=== PATIENT | male | born 1965 | race Caucasian/White ===

== ENCOUNTER 2022-01-08 10:55 | Outpatient (CLI) | payer BC, OTHER, SELFPAY | END 2022-01-08 10:56 | disposition home or self-care (01) | LOC: ANHGOSHLAB 10:59 | PROVIDERS: PCP Emergency Medicine; Visit Provider Emergency Medicine | DX: E07.9 Disorder of thyroid, unspecified (principal) | CPT/HCPCS: 36415 ==

== ENCOUNTER 2022-01-30 10:25 | Emergency (ER) | payer BC, OTHER, SELFPAY ==
--- NOTE | 2022-01-30 10:27 | ED.HA ---
HPI - Headache General Chief Complaint: Headache Stated Complaint: HEADACHE Time Seen by Provider: 01/30/22 10:27 Source: patient and RN notes reviewed History of Present Illness HPI Narrative: Patient is a 56-year-old male who presents to the Urgent Care with complaints of a cluster headache due to a sinusitis. Patient states this is typical for him it has been worse since he has moved here from [place]. Patient states in the past he has gotten a steroid injection to help with the sinusitis to clear up his headache. Patient has taken [id number] Benadryl but has not treated his headaches or taken any other pain medications. No other acute complaints. No acute distress noted. Patient aware of the plan of care. Some parts of this dictation were generated by voice recognition software and may contain typographical and/or grammatical inaccuracies. Related Data Home Medications Medication Instructions Recorded Confirmed dutasteride 0.5 mg capsule 0.5 mg PO DAILY 01/08/22 01/30/22 trazodone 50 mg tablet 50 mg PO QHS PRN Insomnia 01/08/22 01/30/22 Allergies Allergy/AdvReac Type Severity Reaction Status Date / Time No Known Allergies Allergy Verified 01/30/22 10:37 Review of Systems Review of Systems: CONSTITUTIONAL: Denies fever, chills, or sweats. EYES: Denies visual changes, redness, or discharge. ENT: Reports of sinus congestion/pressure, postnasal drainage CARDIOVASCULAR: Denies chest pain, palpitations, or edema. RESPIRATORY: Denies cough or dyspnea. GASTROINTESTINAL: Denies abdominal pain, nausea, vomiting, or diarrhea. GENITOURINARY: Denies dysuria or hematuria. SKIN: Denies rash or itching. MUSCULOSKELETAL: Denies back pain, joint pain, or myalgia. NEUROLOGIC: Reports of cluster headaches All other systems reviewed are negative, except as documented in HPI. [facility] Past Medical History Medical History Allergies Migraine Thyroid disorder Family History Family History Father Alcoholism Depression Anxiety Grandparent Cancer Social History Social History Social History: Caffeine- coffee Smoking status: Never smoker Alcohol intake: never Substance use type: does not use Agree to blood products: Yes Comments At the time of my signature, I reviewed and agree with the nursing past medical, surgical, social, and family history. There is no relevant family history pertinent to the patient complaint. Exam Narrative: GENERAL: This is a well-nourished, well-developed patient, in no apparent distress. HEAD: normocephalic, atraumatic. Frontal sinus tenderness EYES: PERRL. Sclera clear/white. Vision is grossly intact. EARS: External ears normal, auditory canals clear and without drainage, TMs normal without perforation. Hearing grossly intact. NOSE: External nose normal with no obvious nasal discharge, nares without redness, no rhinorrhea. THROAT: Mucous membranes moist, posterior pharynx clear. Mild postnasal drainage NECK: Neck supple CARDIOVASCULAR: Regular rate and rhythm without murmurs, gallops, or rubs. RESPIRATORY: Clear to auscultation. Breath sounds equal bilaterally. No wheezes, rales, or rhonchi. SKIN: warm, intact with no suspicious lesions or rash, good texture and turgor. NEURO: awake, alert, and oriented to person, place and time. There were no obvious focal neurologic abnormalities. EXTREMITIES: No clubbing, cyanosis, or edema. Course Course Level of Care: Express Care Visit Vital Signs Vital signs: Vital Signs Temperature 98.8 F 01/30/22 10:39 Pulse Rate 82 01/30/22 10:39 Respiratory Rate 16 01/30/22 10:39 Blood Pressure 151/95 H 01/30/22 10:39 Pulse Oximetry 97 01/30/22 10:39 Temperature 98.8 F 01/30/22 10:39 Pulse Rate 82 01/30/22 10:39 Respiratory Rate 16 01/30/22
[2022-01-30 10:39] VITALS: BP 151/95; PULSE 82; RESP 16; TEMP 37.1; O2SAT 97
== END 2022-01-30 10:49 | disposition home or self-care (01) ==
PROVIDERS: Emergency Provider Nurse Practitioner Family; PCP Emergency Medicine
DX: J32.9 Chronic sinusitis, unspecified (principal); E07.9 Disorder of thyroid, unspecified
CPT/HCPCS: 99213; G0463

== ENCOUNTER 2022-03-05 01:36 | Day surgery (SDC) | payer BC, OTHER, SELFPAY ==
[2022-02-26 09:07] VITALS: BMI 29.0
[2022-03-05 06:40] VITALS: BP 155/84; PULSE 90; RESP 18; TEMP 36.5; O2SAT 98; BMI 30.3
[2022-03-05] MEDS: LACTATED RINGERS 1,000 ML 150 ML IV CONT (06:56)
--- NOTE | 2022-03-05 07:34 | P.PNAN_ITS ---
Anes - Initial Pre Proc Eval Procedure: Operation Date: 03/05/22 08:00 Proposed Procedures p Screening Colonoscopy - Arnol Kelly MD Date/Time: 03/05/22 07:34 Surgeon: Arnol Kelly MD Pre Op Diagnosis: neoplasm screening Patient Data Age: 56 Gender: M Height: 1.83 m Weight: 101.4 kg Last Vital Signs Temp 97.7 F 03/05/22 06:40 Pulse 90 03/05/22 06:40 Resp 18 03/05/22 06:40 BP 155/84 H 03/05/22 06:40 Pulse Ox 98 03/05/22 06:40 O2 Del Method Room Air 03/05/22 06:40 Allergies Allergy/AdvReac Type Severity Reaction Status Date / Time No Known Allergies Allergy Verified 03/05/22 06:44 Home Medications Medication Instructions Recorded Confirmed Type dutasteride 0.5 mg capsule 0.5 mg PO DAILY 01/08/22 03/05/22 History trazodone 50 mg tablet 50 mg PO QHS PRN Insomnia 01/08/22 03/05/22 History thyroid (pork) 120 mg tablet ([employer] 120 mg PO DAILY #90 tabs 01/14/22 03/05/22 Rx Thyroid) Patient hx anesthesia problems: none Family hx anesthesia problems: none Results Review: All pre-operative results and documents have been reviewed as part of the pre- operative evaluation. [facility] Past Medical History Medical History Allergies Migraine Thyroid disorder Family History Family History Father Alcoholism Depression Anxiety Grandparent Cancer Social History Social History Social History: Caffeine- coffee Smoking status: Former smoker Tobacco type: smokeless tobacco Smokeless tobacco user: chewing tobacco Additional smoking assessment comments: quit 2011 Alcohol intake: never Substance use: never Substance use type: does not use Living arrangements: with family Spiritual care concerns: No Agree to blood products: Yes Anes - Eval Final PreProcedure Day of Procedure 03/05/22 07:34 Patient weight: normal Heart: regular rate and rhythm Lungs: clear to auscultation Airway: Mallampati scale class II Neurological: alert and oriented Last oral intake: >/= 8 hours ASA classification: II Emergent: no Anesthetic plan: proceed Anesthesia type and monitoring: general GIVS and standard monitoring Results Review: All pre-operative results and documents have been reviewed as part of the pre- operative evaluation. Informed Consent: The patient's anesthetic plan and its attendant risks and benefits were discussed with the patient/family/POA. Questions were solicited and answers provided to the satisfaction of the patient/family/POA.
--- NOTE | 2022-03-05 07:56 | PM.HPGS ---
History of Present Illness History of Present Illness Consent: Risks, benefits, and alternatives have been discussed and questions answered. Patient agrees to proceed with procedure. Chief complaint: neoplasm screening Narrative: Cristian Reynolds is a 56 year old male here for first screening colonoscopy Review of Systems Constitutional: Constitutional: Denies headache(s) and Denies weakness Eyes: Eyes: Denies blurry vision ENT: Reports Normal hearing present, Denies headache(s) and Denies neck pain Cardiovascular: Cardiovascular: Denies chest pain and Denies dyspnea Respiratory: Respiratory: Denies dyspnea Gastrointestinal: Gastrointestinal: Reports no additional gastrointestinal complaints Genitourinary: Genitourinary: Denies dysuria Musculoskeletal: Musculoskeletal: Denies neck pain Integumentary/Breasts: Skin/Breast: Denies dry skin Neurologic: Reports Normal hearing present, Denies headache(s) and Denies weakness Psychiatric: Psychiatric: Denies anxiety Endocrine: Endocrine: Denies change in body appearance Hematologic/Lymphatic: Hematologic/Lymphatic: Denies easy bleeding Allergic/Immunologic: Allergic/Immunologic: Denies urticaria PMF Past Medical History Medical History (Updated 03/05/22 @ 07:56 by Arnol Kelly MD) Allergies Colon cancer screening Migraine Thyroid disorder Family History Family History Father Alcoholism Depression Anxiety Grandparent Cancer Social History Social History Social History: Caffeine- coffee Smoking status: Former smoker Tobacco type: smokeless tobacco Smokeless tobacco user: chewing tobacco Additional smoking assessment comments: quit 2010 Alcohol intake: never Substance use: never Substance use type: does not use Living arrangements: with family Spiritual care concerns: No Agree to blood products: Yes Meds Home Medications and Allergies Home Medications Medication Instructions Recorded Confirmed Type dutasteride 0.5 mg capsule 0.5 mg PO DAILY 01/08/22 03/05/22 History trazodone 50 mg tablet 50 mg PO QHS PRN Insomnia 01/08/22 03/05/22 History thyroid (pork) 120 mg tablet ([employer] 120 mg PO DAILY #90 tabs 01/14/22 03/05/22 Rx Thyroid) Allergies Allergy/AdvReac Type Severity Reaction Status Date / Time No Known Allergies Allergy Verified 03/05/22 06:44 Vital Signs Vital Signs - 24 hr 03/05/22 06:40 Temperature 97.7 F Pulse Rate 90 Respiratory Rate 18 Blood Pressure 155/84 H Pulse Oximetry 98 Oxygen Delivery Room Air Exam Const: General: comfortable and no acute distress HENMT: Face/Nose/Sinus: Normal nares present Eyes: General: appearance normal, both eyes and all related structures Neck: Neck: no JVD Resp: Auscultation: clear to auscultation bilaterally Cardio: Rate: regular rate Rhythm: regular rhythm GI: Inspection: non-distended GI Palp: Yes Soft to palpation Skin: General skin exam: normal color Neuro: General: gait normal Speech: normal speech Extrem: General: normal to inspection Psych: Mental Status: mental status grossly normal Assessment and Plan Assessment and plan (1) Colon cancer screening: Code(s): Z12.11 - Encounter for screening for malignant neoplasm of colon Status: Acute Assessment and Plan: colonoscopy
[2022-03-05 08:17] VITALS: BP 114/82; PULSE 90; RESP 19; O2SAT 98
[2022-03-05 08:27] VITALS: BP 124/84; PULSE 92; RESP 18; O2SAT 97
[2022-03-05 08:37] VITALS: BP 132/80; PULSE 89; RESP 19; O2SAT 98
== END 2022-03-05 08:45 | disposition home or self-care (01) ==
PROVIDERS: PCP Emergency Medicine; Visit Provider Internal Medicine Gastroenterology
PROC: 0DJD8ZZ Inspection of Lower Intestinal Tract, Via Natural or Artificial Opening Endoscopic (ICD-10-PCS; CPT 45378; principal; 2022-03-05 08:00)
DX: Z12.11 Encounter for screening for malignant neoplasm of colon (principal); K64.8 Other hemorrhoids; K57.30 Diverticulosis of large intestine without perforation or abscess without bleeding; Z87.891 Personal history of nicotine dependence
CPT/HCPCS: 45378; J2704; J7120

== ENCOUNTER 2022-05-14 15:32 | Emergency (ER) | payer BC, OTHER, SELFPAY ==
[2022-05-14] VITALS (12 sets, daily range): BP systolic 132–151; BP diastolic 82–99; PULSE 77–96; RESP 12–16; TEMP 37.1; O2SAT 97–100
--- NOTE | ~2022-05-14 | CT_ITS ---
EXAMINATION: CT BRAIN W/O DATE: 05/14/2022 18:46 INDICATION: Headache and vomiting TECHNIQUE: Computed tomography (CT) of the head was performed without intravenous contrast. The dose- length product was 605.33 mGy-cm. Automated exposure control and iterative reconstruction technique w ere employed. COMPARISON: No prior studies for comparison. FINDINGS: Normal brain parenchymal volume for age. Normal richmond-white differentiation. No acute intrac ranial hemorrhage, infarction, mass or mass effect. No ventriculomegaly or midline shift. Midline sagittal images demonstrate a normal corpus callosum, c raniovertebral junction and sella turcica. Basilar cisterns are patent. Paranasal sinuses and mastoids are pneumatized. No depressed skull fractures. IMPRESSION: 1. No acute intracranial abnormality. Reviewed, dictated and finalized at location A. [facility] [employer] [facility]
--- NOTE | 2022-05-14 18:02 | ED.HA ---
HPI - Headache General Chief Complaint: Headache Stated Complaint: vivas x 5 days Time Seen by Provider: 05/14/22 17:25 History of Present Illness HPI Narrative: Patient is a 56-year-old male with a history of migraines, hypothyroidism presenting with headache. Patient states that for the last 2 weeks he has had a persistent right-sided headache. States that it has been worsening over the last 5 days. States it is located behind his right eye and is associated with eye tearing. Denies fevers or chills, numbness or weakness, vision changes, speech difficulties, ataxia, chest pain, shortness of breath, cough, abdominal pain, vomiting, diarrhea, leg swelling, dysuria. Related Data Home Medications Medication Instructions Recorded Confirmed dutasteride 0.5 mg capsule 0.5 mg PO DAILY 01/08/22 05/14/22 trazodone 50 mg tablet 50 mg PO QHS PRN Insomnia 01/08/22 05/14/22 ergotamine 1 mg-caffeine 100 mg See Rx Instructions PO .COMPLEX 05/06/22 05/14/22 tablet Allergies Allergy/AdvReac Type Severity Reaction Status Date / Time No Known Allergies Allergy Verified 05/14/22 14:49 Review of Systems Review of Systems: All systems reviewed & are unremarkable except as noted in HPI and below PMFSH Past Medical History Medical History Allergies Colon cancer screening Migraine Thyroid disorder Family History Family History Father Alcoholism Depression Anxiety Grandparent Cancer Social History Social History Social History: Caffeine- coffee Smoking status: Former smoker Tobacco type: smokeless tobacco Smokeless tobacco user: chewing tobacco Additional smoking assessment comments: quit 2010 Alcohol intake: never Substance use: never Substance use type: does not use Lack of Transportation: No Lack of Food: Never True Current Housing: I Have Housing Concerned About Future Housing: No Difficulty Paying Gas/Electric Bills: No Difficulty Paying for Meds: No Currently Unemployed: No Education: Bachelor's Degree Difficulty w/ Childcare or Family Care: No Living arrangements: with family Spiritual care concerns: No Agree to blood products: Yes Exam Narrative: GENERAL: Very uncomfortable appearing laying in bed, pleasant and cooperative HEAD: Normocephalic, atraumatic. EYES: PERRLA and EOMI. right eye is injected, +lacrimation and rhinorrhea ENT: Nares clear, no rhinorrhea or epistaxis. Mucous membranes moist. NECK: Supple. CHEST: Clear to auscultation. No respiratory distress. HEART: Regular rate and rhythm. No murmur heard. Normal peripheral pulses. ABDOMEN: Soft, nontender, nondistended EXTREMITIES: Normal range of motion. No edema. SKIN: Warm, dry, no rash. NEURO: No focal deficits. Alert and oriented x3. 5 out of 5 strength in all extremities, no sensory deficits, no pronator drift, no dysarthria or aphasia, no ataxia. PSYCH: Normal mood and affect. Course Vital Signs Vital signs: Vital Signs Temperature 98.7 F 05/14/22 15:36 Pulse Rate 96 05/14/22 15:36 Respiratory Rate 16 05/14/22 15:36 Blood Pressure 151/82 H 05/14/22 15:36 Pulse Oximetry 97 05/14/22 15:36 Oxygen Delivery Room Air 05/14/22 15:36 Temperature 98.7 F 05/14/22 15:36 Pulse Rate 81 05/14/22 19:31 Respiratory Rate 13 05/14/22 19:31 Blood Pressure 132/93 H 05/14/22 19:31 Pulse Oximetry 99 05/14/22 20:00 Oxygen Delivery Non-Rebreather Mask 05/14/22 18:48 Oxygen Flow Rate 15 05/14/22 18:48 MDM - Headache MDM Narrative Medical decision making narrative: Patient is a 56-year-old male presenting with right-sided headache. Patient slightly hypertensive, otherwise vitals are within normal limits. Exam is remarkable for the above. Concerned that this is a cluster headache with the focality o
[2022-05-14] MEDS: SODIUM CHLORIDE 0.9% IV 1,000 ML 999 ML IV CONT (18:35)
[2022-05-14] MEDS: diphenhydrAMINE HCl INJ 50 MG/ML VIAL 25 MG IV PUSH (18:36)
[2022-05-14] MEDS: KETOROLAC 15 MG/ML VIAL (*BKC) IV PUSH (18:36)
[2022-05-14] MEDS: PROCHLORPERAZINE EDISYLATE 10 MG/2 ML VIAL IV PUSH (18:36)
[2022-05-14 18:45] LABS: Basophils Absolute Auto 0.1 K/mm3 (0.0-0.1); Basophils Percent Auto 0.4 % (0.2-1.2); Eosinophils Absolute Auto 0.3 K/mm3 (0-0.3); Eosinophils Percent Auto 2.3 % (0-4.4); Hematocrit 52.5 % (42.0-52.0); Hemoglobin 17.8 g/dL (14.0-18.0); Immature Granulocyte Percent A 0.7 % (0-0.5); Lymphocytes Absolute Auto 2.57 K/mm3 (0.9-3.2); Lymphocytes Percent Auto 18.9 % (18.3-44.2); Mean Corpuscular HGB Conc 33.9 g/dl (32-36); Mean Corpuscular Hemoglobin 32.3 pg (26-34); Mean Corpuscular Volume 95.3 fl (80-100); Mean Platelet Volume 9.7 fl (7.4-10.4); Monocytes Absolute Auto 0.9 K/mm3 (0.1-0.6); Monocytes Percent Auto 6.8 % (2.6-8.5); Neutrophils Absolute Auto 9.6 K/mm3 (1.3-6.7); Neutrophils Percent Auto 70.9 % (45.5-73.1); Platelet Count Result 230 k/mm3 (150-375); Red Blood Count 5.51 M/mm3 (4.6-6.20); Red Cell Distribution Width 12.8 % (11.5-14.5); White Blood Count 13.6 K/mm3 (4.5-10.0)
[2022-05-14 18:55] LABS: Alanine Aminotransferase 29 U/L (6-50); Albumin Level 4.3 g/dL (3.5-5.1); Alkaline Phosphatase 42 U/L (38-126); Anion Gap 3 mmol/L (8-16); Aspartate Amino Transferase 32 U/L (17-59); Bilirubin,Total 0.7 mg/dL (0.2-1.3); Blood Urea Nitrogen 16 mg/dL (9-20); Calcium 9.3 mg/dL (8.4-10.2); Carbon Dioxide 33 mmol/L (22-30); Chloride 98 mmol/L (98-107); Estimated CRCL calculation 67 ml/min; Estimated Glomerular Filt Rate 53; Glucose 94 mg/dL (65-110); Potassium 4.1 mmol/L (3.4-5.0); Sodium 134 mmol/L (137-145)
== END 2022-05-14 21:12 | disposition home or self-care (01) ==
PROVIDERS: Emergency Provider Emergency Medicine; PCP Emergency Medicine
DX: G44.009 Cluster headache syndrome, unspecified, not intractable (principal); E03.9 Hypothyroidism, unspecified; Z87.891 Personal history of nicotine dependence
CPT/HCPCS: 36415; 70450; 80053; 85025; 96361; 96374; 96375; 99284; J0780; J1200; J1885; J7030

== ENCOUNTER 2022-05-22 12:23 | Emergency (ER) | payer BC, OTHER, SELFPAY ==
[2022-05-22 12:37] VITALS: BP 130/91; PULSE 102; RESP 16; TEMP 36.9; O2SAT 97
--- NOTE | 2022-05-22 12:54 | ED.URI ---
HPI - URI/Sore Throat General Chief Complaint: Upper Respiratory Infection Stated Complaint: SINUS CONGESITON/HEADACHE Time Seen by Provider: 05/22/22 12:54 Source: patient, RN notes reviewed and old records reviewed Mode of arrival: ambulatory Limitations: no limitations History of Present Illness HPI Narrative: 56 year old male presents to [facility] care accompanied by with complaints of 3-4 weeks of sinus congestion and increased incidences of cluster headache pain. Patient has been seen in the emergency room and also has seen his PCP. Patient states that he has had sinus congestion with drainage sinus pressure and right frontal headaches. Patient reports at times he has photophobia and is nauseated.Patient reports that his pain today is 4/10 and describes it as continuous ache. MD elicited complaint: rhinorrhea, nasal congestion, sinus pain and other (cluster headaches) Pertinent past history: sinusitis, seasonal allergies and other (cluster migraines) Onset (ago): week(s) (4) Pain scale (0-10): 4 Description of mucous: clear Able to tolerate fluids by mouth: Yes Treatments prior to arrival: none and other (Benadryl and migraine meds) Related Data Home Medications Medication Instructions Recorded Confirmed dutasteride 0.5 mg capsule 0.5 mg PO DAILY 01/08/22 05/22/22 trazodone 50 mg tablet 50 mg PO QHS PRN Insomnia 01/08/22 05/22/22 ergotamine 1 mg-caffeine 100 mg See Rx Instructions PO .COMPLEX 05/06/22 05/22/22 tablet Allergies Allergy/AdvReac Type Severity Reaction Status Date / Time No Known Allergies Allergy Verified 05/22/22 12:36 Review of Systems Review of Systems: CONSTITUTIONAL: Denies fever, chills, or sweats. EYES: Denies visual changes, redness, or discharge.at times is photophobic ENT: Reports rhinorrhea, congestion, no sore throat, or otalgia. CARDIOVASCULAR: Denies chest pain, palpitations, or edema. RESPIRATORY: Denies cough or dyspnea. GASTROINTESTINAL: Denies abdominal pain, nausea, vomiting, or diarrhea. GENITOURINARY: Denies dysuria or hematuria. SKIN: Denies rash or itching. MUSCULOSKELETAL: Denies back pain, joint pain, or myalgia. NEUROLOGIC: positive for right frontal headache, no numbness, or weakness, history also of cluster migraines PSYCHIATRIC: Denies anxiety or depression. All systems reviewed & are unremarkable except as noted in HPI and below PMFSH Past Medical History Medical History (Updated 05/23/22 @ 00:01 by Noe Parra) Allergies Colon cancer screening Migraine Thyroid disorder Surgical History Surgical History (Updated 05/24/22 @ 16:10 by Shanika Ruelas NP) History of arthroplasty of right shoulder Family History Family History Father Alcoholism Depression Anxiety Grandparent Cancer Social History Social History Social History: Caffeine- coffee Smoking status: Former smoker Tobacco type: smokeless tobacco Smokeless tobacco user: chewing tobacco Additional smoking assessment comments: quit 2011 Alcohol intake: never Substance use: never Substance use type: does not use Lack of Transportation: No Lack of Food: Never True Current Housing: I Have Housing Concerned About Future Housing: No Difficulty Paying Gas/Electric Bills: No Difficulty Paying for Meds: No Currently Unemployed: No Education: Bachelor's Degree Difficulty w/ Childcare or Family Care: No Living arrangements: with family Spiritual care concerns: No Agree to blood products: Yes Comments At time of signature, agree with nursing past medical, surgical, social and family history. There is no relevant family history pertinent to the presenting complaint Exam Narrative: GENERAL: Well-appearing, well-nourished, and in no acute distress. HEAD: Normocephalic, atraumatic. EYES: PERRLA and EOMI.no nystagmus ENT: Nares red [place]
== END 2022-05-22 13:17 | disposition home or self-care (01) ==
PROVIDERS: Emergency Provider Registered Nurse; PCP Emergency Medicine
DX: J32.9 Chronic sinusitis, unspecified (principal); G44.021 Chronic cluster headache, intractable; Z87.891 Personal history of nicotine dependence
CPT/HCPCS: 99213; G0463

== ENCOUNTER 2022-07-09 10:58 | Outpatient (CLI) | payer BC, OTHER, SELFPAY ==
[2022-07-09 12:34] LABS: Kit Draw Collected
== END 2022-07-09 10:59 | disposition home or self-care (01) ==
LOC: ANHGOSHLAB 11:00
PROVIDERS: PCP Emergency Medicine; Visit Provider Nurse Practitioner Family
DX: Z00.00 Encounter for general adult medical examination without abnormal findings (principal)
CPT/HCPCS: 36415

== ENCOUNTER 2022-08-01 07:41 | Emergency (ER) | payer BC, OTHER, SELFPAY ==
--- NOTE | ~2022-08-01 | XR_ITS ---
EXAMINATION: XR lumbar spine 2-3V DATE: 08/01/2022 08:32 INDICATION: Left-sided low back pain. TECHNIQUE: 3 views of lumbar spine were obtained. COMPARISON: None. FINDINGS: Bone alignment is normal. Vertebral body heights are normal. There is mildly decreased disc height at L2-L3. There is multilevel mild facet joint osteoarthritis. IMPRESSION: 1. Mild lumbar spondylosis. Reviewed, dictated and finalized at location A. IMPRESSION: 1. Mild lumbar spondylosis.
[2022-08-01 07:49] VITALS: BP 154/84; PULSE 88; RESP 14; TEMP 36.9; O2SAT 98
[2022-08-01] MEDS: diazePAM INJ (*CRX) 10 MG/2 ML SYRINGE 5 MG IV PUSH (08:08)
[2022-08-01] MEDS: KETOROLAC 30 MG/ML VIAL (*BKC) IV PUSH (08:08)
--- NOTE | 2022-08-01 08:18 | ED.BACK ---
HPI - Back Pain/Injury General Chief Complaint: Back Pain/Injury Stated Complaint: back pain Time Seen by Provider: 08/01/22 07:48 History of Present Illness HPI Narrative: Patient is a 57-year-old male who presents ER with low back pain. Left side. Moves in buttock. Has history of sciatica from a previous injury and this is not as bad. Pain is worse when he steps on his left foot. He has gone to his chiropractor without improvement. Injury occurred while he was doing a body weight [place] workout. No saddle anesthesia, no issues with with urination/defecation. Related Data Home Medications Medication Instructions Recorded Confirmed trazodone 50 mg tablet 50 mg PO QHS PRN Insomnia 01/08/22 07/09/22 sumatriptan succinate 100 mg 100 mg PO ONCE 07/09/22 07/09/22 tablet (Imitrex) Allergies Allergy/AdvReac Type Severity Reaction Status Date / Time No Known Allergies Allergy Verified 08/01/22 07:41 Review of Systems Constitutional: Constitutional: Denies chills and Denies fever(s) Genitourinary: Genitourinary: Denies urinary frequency and Denies urinary incontinence Musculoskeletal: Musculoskeletal: Reports back pain, Denies arthralgias and Denies joint swelling Neurologic: Denies focal weakness and Denies numbness PMFSH Past Medical History Medical History Allergies Colon cancer screening Thyroid disorder Surgical History Surgical History History of arthroplasty of right shoulder Family History Family History Father Alcoholism Depression Anxiety Grandparent Cancer Social History Social History Social History: Caffeine- coffee Smoking status: Former smoker Tobacco type: smokeless tobacco Smokeless tobacco user: chewing tobacco Additional smoking assessment comments: quit 2011 Alcohol intake: never Substance use: never Substance use type: does not use Lack of Transportation: No Lack of Food: Never True Current Housing: I Have Housing Concerned About Future Housing: No Difficulty Paying Gas/Electric Bills: No Difficulty Paying for Meds: No Currently Unemployed: No Education: Bachelor's Degree Difficulty w/ Childcare or Family Care: No Living arrangements: with family Spiritual care concerns: No Agree to blood products: Yes Exam Narrative: GENERAL: Well-appearing, well-nourished, and in no acute distress. HEAD: Normocephalic, atraumatic. EYES: PERRL and EOMI. Neck: No reproducible midline tenderness of the T or L-spine. There is left sided tenderness over the SI region that reproduces the pain. There is mild low thoracic and upper lumbar paraspinal muscular tenderness on the right side without palpable spasm. EXTREMITIES: Normal range of motion. No edema. Patient ambulating in a guarded manner. SKIN: Warm, dry, no rash. NEURO: Alert and oriented x3. PSYCH: Normal mood and affect. Course Course Emergency Course: Patient with modest improvement in pain with Toradol and Valium. Discharge home with Medrol Dosepak and cyclobenzaprine. Discussed need for follow-up with PCP patient verbalized understanding. Vital Signs Vital signs: Vital Signs Temperature 98.5 F 08/01/22 07:49 Pulse Rate 88 08/01/22 07:49 Respiratory Rate 14 08/01/22 07:49 Blood Pressure 154/84 H 08/01/22 07:49 Pulse Oximetry 98 08/01/22 07:49 Oxygen Delivery Room Air 08/01/22 07:49 Temperature 98.5 F 08/01/22 07:49 Pulse Rate 88 08/01/22 07:49 Respiratory Rate 14 08/01/22 07:49 Blood Pressure 154/84 H 08/01/22 07:49 Pulse Oximetry 98 08/01/22 07:49 Oxygen Delivery Room Air 08/01/22 07:49 MDM - Back Pain/Injury Imaging Data Radiologist's impression: ITS Impressions Lumbar Spine X-Ray 08/01/22 08:
[2022-08-01 09:47] VITALS: BP 131/80; PULSE 86; RESP 16; O2SAT 97
== END 2022-08-01 09:49 | disposition home or self-care (01) ==
PROVIDERS: Emergency Provider Emergency Medicine; PCP Emergency Medicine
DX: M54.50 Low back pain, unspecified (principal); E07.9 Disorder of thyroid, unspecified; Z87.891 Personal history of nicotine dependence; M47.816 Spondylosis without myelopathy or radiculopathy, lumbar region
CPT/HCPCS: 72100; 96374; 96375; 99284; J1885; J3360

== ENCOUNTER 2022-08-08 08:11 | Emergency (ER) | payer BC, OTHER, SELFPAY ==
--- NOTE | ~2022-08-08 | CT_ITS ---
EXAMINATION: CT lumbar spine wo con DATE: 08/08/2022 09:55 INDICATION: Low back pain TECHNIQUE: Computed tomography (CT) of the lumbar spine was performed without intravenous contrast. T he dose-length product was 1051.52 mGy-cm. Automated exposure control and iterative reconstruction te chnique were employed. COMPARISON: Lumbar spine series dated 08/01/2022 FINDINGS: There is mild disc narrowing at L5-S1. Vertebral body heights are maintained. No evidence f or acute fracture, subluxation or dislocation. There is a subtle lytic lesion of L2 vertebral body an teriorly. No evidence for spondylolisthesis. No significant spinal stenosis. No significant paraspina l soft tissue abnormality. IMPRESSION: 1. Subtle lytic lesion of L2. Consider metastatic disease and myeloma. Correlate for history of malig arlene. 2: Mild lumbar spondylosis. Reviewed, dictated and finalized at location A. IMPRESSION: 1. Subtle lytic lesion of L2. Consider metastatic disease and myeloma. Correlat e for history of malignancy. 2: Mild lumbar spondylosis.
[2022-08-08 08:25] VITALS: BP 143/91; PULSE 85; RESP 16; TEMP 36.7; O2SAT 98
--- NOTE | 2022-08-08 09:29 | ED.BACK ---
HPI - Back Pain/Injury General Chief Complaint: Back Pain/Injury Stated Complaint: BACK PAIN Time Seen by Provider: 08/08/22 08:52 History of Present Illness HPI Narrative: 57-year-old male presenting to the ED for evaluation of lower back pain. Patient was initially seen on 08/01 for left-sided lower back pain that does radiate to his left buttock. Patient reports he does have a history of sciatica. Patient reports that the pain is worsened with movement and with ambulation. Patient states that the injury occurred while he was doing [employer]. Patient denies any numbness or weakness. Patient states that he was previously treated with a round of steroids with no significant improvement. Patient did have follow-up with his primary care physician does have an outpatient MRI ordered. Patient denies any change in bowel habits or with urination. Patient denies any saddle anesthesia. Related Data Home Medications Medication Instructions Recorded Confirmed trazodone 50 mg tablet 50 mg PO QHS PRN Insomnia 01/08/22 07/09/22 sumatriptan succinate 100 mg 100 mg PO ONCE 07/09/22 07/09/22 tablet (Imitrex) Allergies Allergy/AdvReac Type Severity Reaction Status Date / Time No Known Allergies Allergy Verified 08/06/22 13:44 Review of Systems Review of Systems: All systems reviewed & are unremarkable except as noted in HPI and below PMFSH Past Medical History Medical History Allergies Colon cancer screening Thyroid disorder Surgical History Surgical History History of arthroplasty of right shoulder Family History Family History Father Alcoholism Depression Anxiety Grandparent Cancer Social History Social History Social History: Caffeine- coffee Smoking status: Former smoker Tobacco type: smokeless tobacco Smokeless tobacco user: chewing tobacco Additional smoking assessment comments: quit 2011 Alcohol intake: never Substance use: never Substance use type: does not use Lack of Transportation: No Lack of Food: Never True Current Housing: I Have Housing Concerned About Future Housing: No Difficulty Paying Gas/Electric Bills: No Difficulty Paying for Meds: No Currently Unemployed: No Education: Bachelor's Degree Difficulty w/ Childcare or Family Care: No Living arrangements: with family Spiritual care concerns: No Agree to blood products: Yes Exam Narrative: APPEARANCE: Well appearing, no pain, no distress, well-nourished. HEAD: normocephalic, atraumatic. EYES: PERRLA/EOMI, conjunctivae clear. NOSE: Normal no drainage NECK: Supple. No adenopathy, no masses. RESPIRATORY: Airway patent, respirations nonlabored. Clear to auscultation bilaterally, no rales, rhonchi, wheezing. CARDIOVASCULAR: Regular rate and rhythm without murmurs rubs or gallops. ABDOMINAL: Soft, nontender, nondistended, normal bowel sounds MUSCULOSKELETAL: No significant lower back tenderness to palpation. Some left lower paraspinal tenderness to palpation. Tenderness over the left buttock. NEURO: Alert. Cranial nerves II through XII intact. Grossly intact SKIN: Warm, dry. Normal Color Course Course Emergency Course: 57-year-old male presented emerged department for evaluation of left lower back and left leg pain. CT was ordered to rule out acute lumbar injury. No significant abnormalities were seen on the scan other than a lytic lesion at L2. Patient was updated on the results of the CT scan and encouraged of close follow-up regarding the lytic lesion. Patient does have an outpatient MRI scheduled. He was encouraged of close follow-up with his primary care physician to ensure that this was the appropriate imaging to further evaluate the lesion. Patient reports he do
--- NOTE | 2022-08-08 09:52 | PC.NURSE ---
Pt in CT at this time
[2022-08-08] MEDS: CYCLOBENZAPRINE HCL 10 MG TABLET PO (09:57)
[2022-08-08] MEDS: HYDROcodone/acetaminophen (*CRX) 5-325 MG TABLET 1 TAB PO (09:57)
[2022-08-08] MEDS: KETOROLAC 30 MG/ML VIAL (*BKC) IM (09:58)
== END 2022-08-08 12:15 | disposition home or self-care (01) ==
PROVIDERS: Emergency Provider Emergency Medicine; PCP Emergency Medicine
DX: M54.42 Lumbago with sciatica, left side (principal); E07.9 Disorder of thyroid, unspecified; Z96.611 Presence of right artificial shoulder joint; Z87.891 Personal history of nicotine dependence; M47.816 Spondylosis without myelopathy or radiculopathy, lumbar region; M89.9 Disorder of bone, unspecified
CPT/HCPCS: 72131; 96372; 99284; A9270; J1885

== ENCOUNTER → 2022-08-10 14:54 | Outpatient (CLI) | payer BC, OTHER, SELFPAY ==
--- NOTE | ~2022-08-10 | MR_ITS ---
EXAMINATION: MR lumbar spine wo con DATE: 08/10/2022 15:34 INDICATION: Lumbago with sciatica, left side. TECHNIQUE: Magnetic resonance imaging (MRI) of the lumbar spine was performed without intravenous con trast. Sequences included sagittal T2-weighted FSE, sagittal T2-weighted FS FSE, sagittal T1-weighted FSE, and axial T2-weighted FSE. COMPARISON: Lumbar spine CT 08/08/2022 FINDINGS: Bone alignment is normal. Vertebral body heights are normal. There is mildly decreased disc height at L2-L3. The distal spinal cord signal intensity is normal. The conus medullaris is at T12-L 1. The following disc levels are specifically discussed: L1-L2: The disc does not extend beyond the endplate margin. There is mild bilateral facet joint osteo arthritis. There is no neural foraminal stenosis. There is no central canal stenosis. L2-L3: The disc is mildly bulging. There is mild lateral facet joint osteoarthritis. There is mild ri ght neural foraminal stenosis. There is no central canal stenosis. L3-L4: The disc is mildly bulging. There is severe bilateral facet joint osteoarthritis. There is mil d bilateral neural foraminal stenosis. There is no central canal stenosis. L4-L5: The disc is bulging and has an annular fissure. There is mild bilateral facet joint osteoarthr itis. There is mild bilateral neural foraminal stenosis. There is no central canal stenosis. L5-S1: The disc does not extend beyond the endplate margin. There is severe left facet joint osteoart hritis. There is no neural foraminal stenosis. There is no central canal stenosis. IMPRESSION: 1. Mild lumbar spondylosis. 2. No correlate for the L2 lytic lesion described on the prior CT, most likely a hemangioma. Reviewed, dictated and finalized at location A.
== END ==
PROVIDERS: PCP Emergency Medicine; Visit Provider Nurse Practitioner Family
DX: M54.42 Lumbago with sciatica, left side (principal); M47.816 Spondylosis without myelopathy or radiculopathy, lumbar region
CPT/HCPCS: 72148

== ENCOUNTER 2023-07-13 11:13 | Outpatient (CLI) | payer BC, OTHER, SELFPAY ==
[2023-07-13 12:17] LABS: Basophils Absolute Auto 0.1 K/mm3 (0.0-0.1); Basophils Percent Auto 0.7 % (0.2-1.2); Eosinophils Absolute Auto 0.2 K/mm3 (0-0.3); Eosinophils Percent Auto 3.3 % (0-4.4); Hematocrit 51.4 % (42.0-52.0); Hemoglobin 16.5 g/dL (14.0-18.0); Immature Granulocyte Absolute 0.03 K/mm3 (0.00-0.031); Immature Granulocyte Percent A 0.4 % (0-0.5); Lymphocytes Absolute Auto 1.84 K/mm3 (0.9-3.2); Lymphocytes Percent Auto 25.6 % (18.3-44.2); Mean Corpuscular HGB Conc 32.1 g/dl (32-36); Mean Corpuscular Hemoglobin 30.8 pg (26-34); Mean Corpuscular Volume 95.9 fl (80-100); Monocytes Absolute Auto 0.6 K/mm3 (0.1-0.6); Monocytes Percent Auto 8.2 % (2.6-8.5); Neutrophils Absolute Auto 4.4 K/mm3 (1.3-6.7); Neutrophils Percent Auto 61.8 % (45.5-73.1); Platelet Count Result 241 k/mm3 (150-375); Red Blood Count 5.36 M/mm3 (4.6-6.20); Red Cell Distribution Width 12.9 % (11.5-14.5); White Blood Count 7.2 K/mm3 (4.5-10.0)
[2023-07-13 19:28] LABS: Alanine Aminotransferase 23 U/L (6-50); Albumin Level 4.3 g/dL (3.5-5.1); Alkaline Phosphatase 47 U/L (38-126); Anion Gap 6 mmol/L (4-12); Aspartate Amino Transferase 48 U/L (17-59); Bilirubin,Total 0.7 mg/dL (0.2-1.3); Blood Urea Nitrogen 14 mg/dL (9-20); Calcium 10.2 mg/dL (8.4-10.2); Carbon Dioxide 29 mmol/L (22-30); Chloride 105 mmol/L (98-107); Cholesterol 198 mg/dL (0-200); Estimated Glomerular Filt Rate 52; Glucose 91 mg/dL (65-110); HDL Direct 44 mg/dL; Potassium 4.8 mmol/L (3.4-5.0); Sodium 140 mmol/L (137-145); Triglycerides 68 mg/dL (<150)
[2023-07-13 19:40] LABS: LDL Cholesterol Direct 134 mg/dL
[2023-07-13 19:46] LABS: Free T4 Free Thyroxine 0.96 ng/mL (0.78-2.19)
[2023-07-13 20:00] LABS: Prostate Specific Antigen 9.1 ng/mL (< OR = 4.0); Thyroid Stimulating Hormone 0.586 uIU/mL (0.465-4.680); Total Triiodothyronine (T3) 2.99 NG/ML (0.97-1.69)
== END 2023-07-13 11:14 | disposition home or self-care (01) ==
LOC: ANHGOSHLAB 11:16
PROVIDERS: PCP Emergency Medicine; Visit Provider Emergency Medicine
DX: Z12.5 Encounter for screening for malignant neoplasm of prostate (principal); E07.9 Disorder of thyroid, unspecified; E78.5 Hyperlipidemia, unspecified; D75.1 Secondary polycythemia
CPT/HCPCS: 36415; 80053; 80061; 84153; 84439; 84443; 84480; 85025; G0103

== ENCOUNTER 2023-07-13 11:45 | Outpatient (CLI) | payer BC, OTHER, SELFPAY ==
--- NOTE | ~2023-07-13 | XR_ITS ---
EXAM: XR knee LT min 4V DATE: 07/13/2023 12:14 HISTORY: M17.0 - Bilateral primary osteoarthritis of knee . COMPARISON: None available. FINDINGS: Normal mineralization. No fracture or dislocation. No lytic or blastic lesion. Quadriceps enthesopathy. Mild tricompartmental left knee osteophytosis. Mild medial joint space narrowing. Trace joint effusion. No erosion or periosteal change. Soft tissues within normal limits. IMPRESSION: Mild tricompartmental left knee osteoarthritis. Reviewed, dictated and finalized at location K.
--- NOTE | ~2023-07-13 | XR_ITS ---
EXAM: XR knee RT min 4V DATE: 07/13/2023 12:15 HISTORY: M17.0 - Bilateral primary osteoarthritis of knee . COMPARISON: X-ray left knee, same date. FINDINGS: Normal mineralization. No fracture or dislocation. No lytic or blastic lesion. Mild tricom partmental osteophytosis. Quadriceps enthesopathy. Mild medial joint space narrowing. No erosion or p eriosteal change. Soft tissues within normal limits. IMPRESSION: Mild tricompartmental osteoarthritis of the right knee. Reviewed, dictated and finalized at location K.
== END 2023-07-13 11:46 ==
PROVIDERS: PCP Emergency Medicine; Visit Provider Emergency Medicine
DX: M17.0 Bilateral primary osteoarthritis of knee (principal)
CPT/HCPCS: 73564

== ENCOUNTER 2023-07-21 09:41 | Outpatient (CLI) | payer BC, OTHER, SELFPAY ==
[2023-07-24 13:22] LABS: Testosterone Total 1888 ng/dL (250-1100)
[2023-07-25 11:04] LABS: PSA, Free 1.6 ng/mL; Percent Free Prostate Spec Ag 16 % (calc) (>25)
== END 2023-07-21 09:42 | disposition home or self-care (01) ==
LOC: ANHGOSHLAB 09:43
PROVIDERS: PCP Emergency Medicine; Visit Provider Emergency Medicine
DX: R97.20 Elevated prostate specific antigen [PSA] (principal)
CPT/HCPCS: 36415; 84153; 84154; 84403

== ENCOUNTER 2024-03-17 08:31 | Emergency (ER) | payer BC, OTHER, SELFPAY ==
[2024-03-17 08:53] VITALS: BP 141/96; PULSE 107; RESP 16; TEMP 37.7; O2SAT 97
--- NOTE | 2024-03-17 09:15 | ED.URI ---
HPI - URI/Sore Throat General Chief Complaint: Upper Respiratory Infection Stated Complaint: Headache/Cough Time Seen by Provider: 03/17/24 09:16 Source: patient and RN notes reviewed Mode of arrival: ambulatory Limitations: no limitations History of Present Illness HPI Narrative: 58-year-old male presents with concern for headache and cough. He reports fever, aches, chills, sweats. He reports secondary exposure to COVID MD elicited complaint: cough and sore throat Related Data Home Medications ?Medication ?Instructions ?Recorded ?Confirmed ?Last Taken ?Type sumatriptan succinate 100 mg 100 mg PO ONCE 07/09/22 07/13/23 Unknown History tablet (Imitrex) Allergies Allergy/AdvReac Type Severity Reaction Status Date / Time No Known Allergies Allergy Verified 03/17/24 08:51 Review of Systems Review of Systems: CONSTITUTIONAL: Reports malaise, chills, sweats, or fever. EYES: Denies visual changes, redness, or discharge. ENT: Reports rhinorrhea, congestion, sinus pain, otalgia and sore throat. CARDIOVASCULAR: Denies chest pain, palpitations, or edema. RESPIRATORY: Reports cough. Denies dyspnea. GASTROINTESTINAL: Denies abdominal pain, nausea, vomiting, diarrhea SKIN: Denies rash or itching. MUSCULOSKELETAL: Denies myalgia. NEUROLOGIC: Reports headache. All systems reviewed & are unremarkable except as noted in HPI and below PMFSH Past Medical History Medical History (Updated 03/17/24 @ 09:21 by Jane Lares NP) Colon cancer screening Allergies Thyroid disorder Surgical History Surgical History (Updated 10/28/23 @ 08:22 by Dania Murrieta MA) H/O prostate biopsy History of arthroplasty of right shoulder Family History Family History Father Alcoholism Depression Anxiety Grandparent Cancer Social History Social History Social History: Caffeine- coffee Smoking status: Former smoker Tobacco type: smokeless tobacco Smokeless tobacco user: chewing tobacco Additional smoking assessment comments: quit 2011 Alcohol intake: never Substance use: never Substance use type: does not use Lack of Transportation: No Lack of Food: Never True Current Housing: I Have Housing Concerned About Future Housing: No Difficulty Paying Gas/Electric Bills: No Difficulty Paying for Meds: No Currently Unemployed: No Education: Bachelor's Degree Difficulty w/ Childcare or Family Care: No Living arrangements: with family Spiritual care concerns: No Agree to blood products: Yes Comments At time of signature, agree with nursing past medical, surgical, social and family history. There is no relevant family history pertinent to the presenting complaint Exam Narrative: GENERAL: Well-appearing, well-nourished, and in no acute distress. HEAD: Normocephalic EYES: PERRLA, conjunctivae clear ENT: Nares clear, turbinates edematous and erythematous, clear discharge. Mucous membranes moist. TM pearly richmond with dull light reflex bilaterally; no tragal tenderness. Oropharynx not erythematous without lesions. Tonsils not enlarged and without exudate, no drooling, no hoarseness, no trismus, uvula midline. NECK: Supple. No lymphadenopathy CHEST: Clear to auscultation, breath sounds equal. No wheezing, rhonchi, rales, or stridor. No respiratory distress, speaks in full sentences. HEART: Regular rate and rhythm. No murmur heard. SKIN: Warm, dry, no rash. NEURO: Alert and oriented x3. PSYCH: Normal mood and affect Course Course Emergency Course: Patient is aware of diagnosis, understands and agrees to treatment plan. Anticipatory guidance given. Patient agrees to follow-up as directed and is aware of reasons to seek care at the emergency department. Portions of this record may have been created with voice recognition software Level of Care: Express Care Visit Vital Signs Vital signs: Vital Signs Temperature 99.9 F H 03/17/24 08:53 Pulse Rate 107 H 03/17/24 08:53 Respiratory Rate 16 03/17/24 08:53 Blood Pressure 141/96 H 03/17/24 08:53 Pulse Oximetry 97 03/17/24 08:53 Temperature 99.9 F H 03/17/24 08:53 Pulse Rate 107 H 03/17/24 08:53 Respiratory Rate 16 03/17/24 08:53 Blood Pressure 141/96 H 03/17/24 08:53 Pulse Oximetry 97 03/17/24 08:53 Reviewed. MDM - URI/Sore Throat MDM Narrative Medical decision making narrative: Differential diagnosis considered: Peterson virus, strep pharyngitis, allergic rhinitis, upper respiratory tract infection, sinusitis, rhinosinusitis, nasopharyngitis. viral pharyngitis, otitis media, otitis externa, pneumonia, bronchitis, viral cough syndrome, viral syndrome, and influenza. Exam findings show no acute concerns or changes; patient is non-toxic appearing and is in no distress. Patient is appropriate for outpatient treatment and follow-up. Lab Data Attestation: I reviewed the patient's lab results. Critical Care Time Critical Care Time Critical Care Time: No Discharge Plan Discharge Clinical Impression: Upper respiratory infection Patient Disposition: Home, Self-Care Condition: Stable Instructions: Upper Respiratory Infection (ED) Additional Instructions: Your rapid COVID and flu test is negative. You may want to repeat this test in 1-2 days. -Take strict precautions to prevent the spread of your virus. Be diligent about covering your cough (even when you are alone) and washing your hands frequently. -You may contagious until you have been symptom and/or fever free for 24 hours without fever reducing medicine -Alternate Ibuprofen and Tylenol for pain and fever relief (per package directions) -Drink plenty of fluid - drink fluid with electrolytes such as Gatorade or other oral re-hydration solution. Avoid caffeine, which can make dehydration worse. -Get plenty of rest to help your body heal. -Use a cool mist humidifier for chest and nasal congestion. -Eat RAW honey or use cough drops to ease throat discomfort -Do not smoke or expose children to secondhand smoke -Wash your hands frequently. -Please follow-up with your primary care doctor in the next 1-2 days if your symptoms do not improve. -If you have any worsening of symptoms or any other concerns please go to the ED immediately. -Please take medications as prescribed and continue taking your home medications as usual. 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
[2024-03-17 09:35] LABS: EDCOVIDSCREEN Negative (Negative); EDINFLUASCREEN Negative (Negative); EDINFLUBSCREEN Negative (Negative)
== END 2024-03-17 09:28 | disposition home or self-care (01) ==
PROVIDERS: Emergency Provider Nurse Practitioner; PCP Nurse Practitioner Family
DX: J06.9 Acute upper respiratory infection, unspecified (principal); Z87.891 Personal history of nicotine dependence; Z20.822 Contact with and (suspected) exposure to COVID-19
CPT/HCPCS: 87426; 87804; 99213; G0463

== ENCOUNTER 2024-09-02 13:02 | Emergency (ER) | payer OTHER, BC, SELFPAY ==
--- NOTE | ~2024-09-02 | CT_ITS ---
EXAMINATION: CT cervical spine wo con, CT thoracic spine wo con DATE: 09/02/2024 15:54 INDICATION: trauma TECHNIQUE: Computed tomography (CT) of the cervical spine and thoracic was performed without intraven ous contrast. Automated exposure control and iterative reconstruction technique were employed. The do se-length product was 502.55 (accession [id number]), 1058.73 (accession [id number]) mGy-cm. COMPARISON: None. FINDINGS: CERVICAL SPINE: Vertebral Body Alignment: Intact. Craniocervical and atlantoaxial alignment: Moderate degenerative change. Alignment intact. Osseous structures/fracture: No evidence of a lytic or blastic process in the visualized spine. No e vidence of acute fracture. Cervical soft tissues: The paraspinal soft tissues planes are maintained. Degenerative changes: Degenerative changes, without severe neural foraminal or central canal narrowin g. THORACIC SPINE: Vertebral body alignment intact. Vertebral body heights preserved. Mild multilevel degenerative disc disease. No traumatic malalignment or fracture. Visualized lung parenchyma is clear. Bilateral adrena l adenomas. IMPRESSION: No acute fracture or traumatic malalignment in the cervical spine or thoracic. Reviewed, dictated and finalized at location K. IMPRESSION: No acute fracture or traumatic malalignment in the cervical spine or thoracic.
--- OUTSIDE RECORDS SUMMARY | 2024-09-02 13:05 | XMS_ITS | Patient Health Record ---
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 for 90 Active Valium 5 MG 1 tablet as needed Orally Once a day for 1 days 08/10/2021 Active Immunizations Vaccine Route Administration Date Status Comme nts FLULAVAL QUADRIVALENT IM Intramuscular 01/22/2020 Administ ered Fluzone Intradermal age 18-64 ID Intradermal 01/14/2014 Administered Fluzone multidose [facility] 3yrs and older IM Intramuscular 03/04/2017 Administered Fluzone Quadrivalent IM Intramuscular 01/18/2013 Administe red Problems Problem Type SNOMED Code ICD Code Onset Dates Problem Status W/U Status Risk Notes Problem 408267137 Dyslipidemia (E78.5) Active confirmed Problem 14399160 DDD (degenerativ e disc disease), lumbar (M51.36) Active confirmed Problem 223709517 Encounter for general adult medical examination without abnormal findings (Z00.00) Active confirmed Problem 943572856 Chronic cluster headache, not intractable (G44.029) Active confirmed Problem 793131199 Erectile dysfunction, unspecified erectile dysfunction type (N52.9) Active confirmed Problem 275596897 Insomnia, unspecified type (G47.00) Active confirmed Problem 31353271 Hypothyroidism, unspecified type (E03.9) Active confirmed Problem 122352604 Acute bilateral low back pain with left-sided sciatica (M54.42) Active confirmed Problem 05850008 Seasonal allergi c rhinitis due to pollen (J30.1) Active confirmed Problem 093726512 Injury of left rotator cuff, subsequent encounter (S46.002D) Active confirmed Problem 512844274 Spondylosis of lumbar joint (M47.816) Active confirmed Plan Of Treatment Pending Test Test Name Order Date X ray : Spines, lumbar 2 views 1 X ray : LS Spine 05/01/2019 MRI : Lumbar without contrast 05/04/2019 MRI : Pelvis with and without Contrast 0 08/14/2021 INFLUENZA A 05/12/2010 INFLUENZA B 05/12/2010 URINALYSIS 09/08/2009 Insurance Providers Payer Name Payer Address Payer Phone Subscriber Number Group Number Insured Name Patient Relationship to Insured Coverage Start Date Coverage End Date [employer] [facility] [address] [place] [address] [id number] Manny Reynolds Self - patient is the insured [facility] [address] [place] [address] [id number] Manny Reynolds Self - patient is the insured Medications Administered Medication Instructions Date of Administration Dosage Notes Depo Medrol 80 mg 06/01/2009 80 Depo Medrol 80 mg 05/12/2010 Depo Medrol 80 mg 05/21/2013 80 mg Depo Medrol 80 mg 05/28/2017 80 mg Depo Medrol 80 mg 12/02/2018 80 mg Depo Medrol 80 mg 12/06/2019 80 mg Depo Medrol 80 mg 06/22/2020 80 mg Depo Medrol 80 mg 01/02/2021 80 mg KENALOG 40 MG 05/31/2021 Ketorolac 60mg (bill 4 units) 12/02/2018 60 mg NUBAIN 10 MG 12/08/2018 10 mg phenergan 12/08/2018 25 mg Promethazine 06/28/2020 50 mg TORADOL 15 MG (1 unit) 06/20/2009 60 mg (f ma1) TORADOL 30 MG (2 units) 05/05/2020 2 mL TORADOL 60 MG (4 units) 06/28/2020 2 mL Medical (General) History Medical History History ICD Code chronic sinusitis cluster headaches suoptimal thyroid suboptimal testosterone Surgical History Surgery Date(Month/Year) redo shoulder surgery, right 2005 shoulder surgery, right 2003
[2024-09-02 13:14] VITALS: BP 159/95; PULSE 94; RESP 14; TEMP 36.6; O2SAT 97
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
[2024-09-02 17:44] VITALS: BP 148/76; PULSE 85; RESP 16; TEMP 36.7; O2SAT 98
== END 2024-09-02 17:46 | disposition home or self-care (01) ==
PROVIDERS: Emergency Provider Emergency Medicine; PCP Nurse Practitioner Family
DX: S16.1XXA Strain of muscle, fascia and tendon at neck level, initial encounter (principal); S29.012A Strain of muscle and tendon of back wall of thorax, initial encounter; V89.2XXA Person injured in unspecified motor-vehicle accident, traffic, initial encounter; W22.10XA Striking against or struck by unspecified automobile airbag, initial encounter; Z87.891 Personal history of nicotine dependence
CPT/HCPCS: 72125; 72128; 99284

== ENCOUNTER 2024-12-31 15:51 | Outpatient (CLI) | payer BC, OTHER, SELFPAY ==
--- OUTSIDE RECORDS SUMMARY | 2024-12-31 16:13 | XMS_ITS | Patient Health Record ---
Author Organization [facility] Address [address] [place] [phone] Care Team Providers Care Burlap Man Name Role Phone Ezequiel Conklin Primary Care Provider Allergies Allergen (clinical drug ingredient) Drug/Non Drug Allergy documented on EMR Reaction Allergy Type Onset Date Status PredniSONE severe hiccups and indigestion Drug Allergy Active Reason For Referral No Information Medications Medication SIG (Take, Route, Frequency, Duration) Notes Start Date End Date Status Liothyronine Sodium 5 MCG TAKE ONE TABLE T BY MOUTH EVERY TWELVE HOURS; Duration: 30 Active [employer] Thyroid 120 MG 1 tablet on an empty stomach Orally Once a day; Duration: 90 days 08/08/2021 Active Imitrex 100 MG 1 tablet at least 2 hours between doses as needed Orally Twice a day; Duration: 30 days 07/04/2020 Active traZODone HCl 50 MG 1 tablet at bedtime as needed Orally Once a day; Duration: 30 Active Levothyroxine Sodium 125 MCG TAKE 1 TABL ET BY MOUTH IN THE MORNING ON AN EMPTY STOMACH.; Duration: 90 Active Valium 5 MG 1 tablet as needed Orally Once a day; Duration: 1 days 08/10/2021 Active Immunizations Vaccine Route Administration Date Status Comme nts CEG FLULAVAL QUADRIVALENT IM Intramuscular 01/22/2020 Admi nistered Fluzone Intradermal age 18-64 ID Intradermal 01/14/2014 Administered Fluzone multidose [place] 3yrs and older IM Intramuscular 03/04/2017 Administered Fluzone Quadrivalent IM Intramuscular 01/18/2013 Administe red Problems Problem Type SNOMED Code ICD Code Onset Dates Problem Status W/U Status Risk Notes Problem Dyslipidemia (847379536) Dyslipidemia (E78.5) Active confirmed Problem Degenerative disc disease (01910157) DDD (degenerative disc disease), lumbar (M51.36) Active confirmed Problem Adult health examination (188770415) Encounter for general adult medical examination without abnormal findings (Z00.00) Active confirmed Problem Chronic cluster headache (208491604) Chronic cluster headache, not intractable (G44.029) Active confirmed Problem Erectile dysfunction (disorder) (394054149) Erectile dysfunction, unspecified erectile dysfunction type (N52.9) Active confirmed Problem Insomnia (487180835) Insomnia, unspecified type (G47.00) Active confirmed Problem Hypothyroidism (06690289) Hypothyroidism, unspecified type (E03.9) Active confirmed Problem Sciatica (09788691) Acute bilateral low back pain with left-sided sciatica (M54.42) Active confirmed Problem Allergic rhinitis caused by pollen (63508563) Seasonal allergic rhinitis due to pollen (J30.1) Active confirmed Problem Injury of rotator cuff (848269575) Injury of left rotator cuff, subsequent encounter (S46.002D) Active confirmed Problem Lumbosacral spondylosis without myelopathy (06060708) Spondylosis of lumbar joint (M47.816) Active confirmed Plan Of Treatment Pending Test Test Name Order Date X ray : Spines, lumbar 2 views 1 MRI : Lumbar without contrast 05/04/2019 MRI : Pelvis with and without Contrast 0 08/14/2021 INFLUENZA A 05/12/2010 INFLUENZA B 05/12/2010 URINALYSIS 09/08/2009 Insurance Providers Payer Name Payer Address Payer Phone Subscriber Number Group Number Insured Name Patient Relationship to Insured Coverage Start Date Coverage End Date [facility] [address] [place] [phone] [id number] Manny Reynolds Self - patient is the insured [facility] [address] [place] [phone] [id number] Manny Reynolds Self - patient is the [...]
[2024-12-31 18:37] LABS: Hematocrit 47.7 % (42.0-52.0); Hemoglobin 16.0 g/dL (14.0-18.0); Immature Granulocyte Percent A 0.3 % (0-0.5); Lymphocytes Absolute Auto 2.42 K/mm3 (0.9-3.2); Mean Corpuscular HGB Conc 33.5 g/dl (32-36); Mean Corpuscular Hemoglobin 31.3 pg (26-34); Mean Corpuscular Volume 93.3 fl (80-100); Nucleated Red Blood Cells Absolute Auto 0.000 K/mm3 (0.0-0.012); Nucleated Red Blood Cells Perc 0.0 % (0.0-0.2); Platelet Count Result 229 k/mm3 (150-375); Red Blood Count 5.11 M/mm3 (4.6-6.20); White Blood Count 7.2 K/mm3 (4.5-10.0)
[2024-12-31 18:44] LABS: Alanine Aminotransferase 28 U/L (6-50); Albumin Level 4.3 g/dL (3.5-5.1); Alkaline Phosphatase 47 U/L (38-126); Anion Gap 7 mmol/L (4-12); Aspartate Amino Transferase 35 U/L (17-59); Bilirubin,Total 0.6 mg/dL (0.2-1.3); Blood Urea Nitrogen 13 mg/dL (9-20); Calcium 9.4 mg/dL (8.4-10.2); Carbon Dioxide 28 mmol/L (22-30); Chloride 103 mmol/L (98-107); Cholesterol 211 mg/dL (0-200); Estimated Glomerular Filt Rate 59; Glucose 86 mg/dL (65-110); HDL Direct 50 mg/dL; Potassium 4.4 mmol/L (3.4-5.0); Sodium 138 mmol/L (137-145); Total Protein 6.7 g/dL (6.3-8.2); Triglycerides 77 mg/dL (<150)
[2024-12-31 19:20] LABS: Thyroid Stimulating Hormone 0.607 uIU/mL (0.465-4.680)
== END 2024-12-31 15:52 | disposition home or self-care (01) ==
LOC: ANHGOSHLAB 15:52
PROVIDERS: PCP Nurse Practitioner Family; Visit Provider Nurse Practitioner Family
DX: E78.5 Hyperlipidemia, unspecified (principal); E07.9 Disorder of thyroid, unspecified; G44.021 Chronic cluster headache, intractable
CPT/HCPCS: 36415; 80053; 80061; 84443; 85025